=== PATIENT | female | born 1965 | race Caucasian/White ===

== ENCOUNTER 2016-08-29 14:24 | Day surgery (SDC) | payer OTHER ==
[~2016-08-29] VITALS: Ht 152.4 cm; Wt 72.6 kg
[~2016-08-29 14:24] MED LIST: AMLODIPINE BESYL5 MG PO; ASPIRIN EC325 MG PO; ASPIRIN325 MG PO; ATARAX10 MG PO; Actonel PO; CELLCEPT250 MG PO; CIPRO500 MG PO; CIPRO750 MG PO; CLEOCIN300 MG PO; CLOPIDOGREL75 MG PO; COLACE PO; COLACE100 MG PO; COLCRYS0.6 MG PO; COUMADIN,JANTO2.5 MG PO; CRESTOR20 MG PO; CYCLOSPORINE M100 MG PO; CYCLOSPORINE100 M2 PO; CYCLOSPORINE25 M2 PO; CYCLOSPORINE25 M3 PO; DILANTIN100 MG PO; ERGOCALCIF50000 UNIT PO; LAMICTAL100 MG PO; LAMICTAL150 M1 PO; LAMOTRIGINE100 MG PO; LASIX20 MG PO; LEVOTHYROXINE75 MCG PO; LOPRESSOR50 MG PO; LaMICtal PO; Lasix PO; Levothroid,Synthroid PO; METOPROLOL PO; METOPROLOL SUCC25 MG PO; METOPROLOL SUCC50 MG PO; METOPROLOL TART50 MG PO; MYCOPHENOLATE250 MG PO; NEURONTIN100 MG PO; NEXIUM40 MG PO; NITROSTAT,NITR0.4 M1 SL; NITROSTAT0.4 MG SL; NORVASC5 MG PO; Norvasc PO; OPANA ER5 MG PO; OXYCODONE HCL E10 MG PO; Oyst-Cal D, Oscal W/ PO; PHENYTOIN SODI100 M1 PO; PLAVIX75 MG PO; PREDNISONE1 MG PO; PROLIA60 MG/1 ML SC; PROTONIX40 MG PO; Percocet 5/325,Endoc PO; RANEXA500 MG PO; RECLAST5 MG/100 M IV; SANDIMMUNE25 MG PO; TOPROL XL50 MG PO; TRAMADOL HCL100 MG PO; TRAMADOL HCL200 MG PO; TYLENOL EXTRA500 MG PO; Toprol XL PO; VITAMIN D1000 INTUN PO; VITAMIN D250000 UNIT PO; Vytorin 10/80 PO; [UNRECOGNIZED DRUG - OTHER] PO; predniSONE PO
== END 2016-08-29 17:17 | disposition home or self-care (01) ==
LOC: PAIN 14:24 → SDC 15:00 → PAIN 15:00
PROC: 01513ZZ Destruction of Cervical Nerve, Percutaneous Approach (ICD-10-PCS; principal; 2016-08-29)
DX: M47.812 Spondylosis without myelopathy or radiculopathy, cervical region (principal); M54.12 Radiculopathy, cervical region; M47.816 Spondylosis without myelopathy or radiculopathy, lumbar region; M79.7 Fibromyalgia; Z79.02 Long term (current) use of antithrombotics/antiplatelets; I25.10 Atherosclerotic heart disease of native coronary artery without angina pectoris; Z86.73 Personal history of transient ischemic attack (TIA), and cerebral infarction without residual deficits; Q61.8 Other cystic kidney diseases; M54.5 Low back pain; I25.2 Old myocardial infarction; Z94.0 Kidney transplant status; Z96.642 Presence of left artificial hip joint; Z95.1 Presence of aortocoronary bypass graft; Z79.84 Long term (current) use of oral hypoglycemic drugs; Z88.8 Allergy status to other drugs, medicaments and biological substances
CPT/HCPCS: J1030; J2250; J3010; S0020

== ENCOUNTER 2016-09-01 08:37 | Observation (INO) | payer OTHER ==
[~2016-09-01] VITALS: Ht 152.4 cm; Wt 80.0 kg
[2016-09-01 10:04] LABS: BASOPHIL COUNT 0.1 K/uL (0-0.1); EOSINOPHIL (%) 9.8 % (0-5); EOSINOPHIL COUNT 0.8 K/uL (0-0.3); HEMATOCRIT 35.7 % (36.0-46.0); IMMATURE GRANULOCYTE (%) 0.4 % (0.0-0.7); INSTRUMENT ABS NEUTROPHIL CT 4.2 K/uL; LYMPHOCYTE COUNT 2.4 K/uL (1.0-2.8); MCH 31.6 PG (29.0-34.0); MCHC 30.5 G/DL (30.0-36.0); MCV 103.5 FL (83-99); MEAN PLAT.VOLUME 10.3 uM^3 (9.5-12.4); MONOCYTE (%) 8.4 % (3-12); MONOCYTE COUNT 0.7 K/uL (0-0.8); NEUTROPHIL (%) 51.5 % (45-76); NEUTROPHIL COUNT 4.2 K/uL (1.8-6.4); PLATELET COUNT 278 K/uL (156-360); RBC DIS.WIDTH-SD 48.7 % (39-53); RED BLOOD COUNT 3.45 M/uL (3.80-5.20); WHITE BLOOD COUNT 8.2 K/uL (4.1-10.2)
[2016-09-01 10:13] LABS: PTT 22.6 (25-32)
[2016-09-01 10:14] LABS: CHLORIDE 113 mEq/L (99-109); SODIUM 141 mEq/L (136-147)
[2016-09-01 10:16] LABS: GLUCOSE 85 mg/dL (70-99)
[2016-09-01 10:17] LABS: ANION GAP 8 MEQ/L (2-14)
[2016-09-01 10:20] LABS: GFR ESTIMATE (CALCULATED) > 59 mL/min/; UREA NITROGEN (BUN) 31 mg/dL (9-23)
[2016-09-01 10:23] LABS: TROP-I INTERPRETATION NEGATIVE; TROPONIN-I 0.01 ng/mL (0.0-0.30)
[2016-09-01 11:37] VITALS: BP 167/88
[2016-09-01] MEDS ORDERED: PLAVIX75 MG PO (12:13)
[2016-09-01] MEDS ORDERED: ERGOCALCIF50000 UNIT PO (12:14)
[2016-09-01] MEDS ORDERED: ROXICODONE5 MG PO (12:14)
[2016-09-01] MEDS ORDERED: FLUOROPLEX30 GM TP (16:10)
[2016-09-01 16:19] VITALS: BP 136/70
[2016-09-01 20:00] VITALS: BP 143/80
[2016-09-01 23:55] VITALS: BP 115/66
[2016-09-02 04:50] VITALS: BP 132/77
[2016-09-02 05:43] LABS: HEMATOCRIT 33.1 % (36.0-46.0); MCH 31.5 PG (29.0-34.0); MCHC 30.5 G/DL (30.0-36.0); MCV 103.1 FL (83-99); MEAN PLAT.VOLUME 10.5 uM^3 (9.5-12.4); PLATELET COUNT 272 K/uL (156-360); RBC DIS.WIDTH-CV 12.9 % (11.8-14.6); RBC DIS.WIDTH-SD 48.9 % (39-53); RED BLOOD COUNT 3.21 M/uL (3.80-5.20); WHITE BLOOD COUNT 7.8 K/uL (4.1-10.2)
[2016-09-02 06:01] LABS: ANION GAP 7 MEQ/L (2-14); CHLORIDE 112 MEQ/L (99-109); GFR ESTIMATE (CALCULATED) 56 mL/min/; GLUCOSE 89 mg/dL (70-99); HDL CHOLESTEROL 43 MG/DL (Desirable>=50); LDL CHOLESTEROL 83 mg/dL (Desirable<100); NON-HDL CHOLESTEROL 112 mg/dL (Desirable<160); POTASSIUM 4.9 MEQ/L (3.7-5.4); SAMPLE HEMOLYSIS CHECK 0; SAMPLE ICTERIC CHECK 0; SAMPLE LIPEMIA CHECK 0; SODIUM 140 MEQ/L (136-147); TOTAL CHOLESTEROL 155 mg/dL (Desirable<200); TRIGLYCERIDES 145 MG/DL (Normal: <150); UREA NITROGEN (BUN) 25 mg/dL (9-23)
[2016-09-02 06:50] LABS: Estimated Average Glucose 100 mg/dL (70-123); HEMOGLOBIN A1c (GLYCOHEMOGLOB) 5.1 % HGB (Below 5.7)
[2016-09-02 08:46] VITALS: BP 143/76
== END 2016-09-02 11:08 | disposition home or self-care (01) ==
LOC: EME → EDBD 08:37 → EME 08:37 → EDOF 10:46 → 5WEST 10:46 → EDOF 10:50 → 5WEST 11:28
PROVIDERS: Emergency Medicine; Hospitalist
DX: G45.9 Transient cerebral ischemic attack, unspecified (principal); G40.909 Epilepsy, unspecified, not intractable, without status epilepticus; I69.351 Hemiplegia and hemiparesis following cerebral infarction affecting right dominant side; I25.10 Atherosclerotic heart disease of native coronary artery without angina pectoris; I10 Essential (primary) hypertension; E78.5 Hyperlipidemia, unspecified; Z94.0 Kidney transplant status; K21.9 Gastro-esophageal reflux disease without esophagitis; E03.9 Hypothyroidism, unspecified; G89.29 Other chronic pain
CPT/HCPCS: 70450; 70551; 71010; 80048; 80061; 83036; 84484; 85025; 85027; 85610; 85730; 93005; 99281; 99285; G0378; G8978 GP CH; G8979 GP CH; G8980 GP CH; G8987 GO CH; G8988 GO CH; G8989 GO CH; J1644; J7502; J7512; J7515

== ENCOUNTER 2017-07-22 07:54 | Day surgery (SDC) | payer OTHER ==
[~2017-07-22] VITALS: Ht 152.4 cm; Wt 68.0 kg
[~2017-07-22 07:54] MED LIST changes: +COLACE CLEAR50 MG PO; +FLUOROPLEX30 GM TP; +ROXICODONE5 MG PO; +TRAMADOL HCL E200 M1 PO
[2017-07-22] MEDS ORDERED: ASPIR 8181 M1 PO (08:43)
== END 2017-07-22 10:34 | disposition home or self-care (01) ==
LOC: PAIN 07:54
DX: M50.13 Cervical disc disorder with radiculopathy, cervicothoracic region (principal); I25.10 Atherosclerotic heart disease of native coronary artery without angina pectoris; F41.9 Anxiety disorder, unspecified; I25.2 Old myocardial infarction; I10 Essential (primary) hypertension; K21.9 Gastro-esophageal reflux disease without esophagitis; Z79.891 Long term (current) use of opiate analgesic; Z79.02 Long term (current) use of antithrombotics/antiplatelets; Z86.73 Personal history of transient ischemic attack (TIA), and cerebral infarction without residual deficits
CPT/HCPCS: J1100

== ENCOUNTER 2017-08-07 09:28 | Day surgery (SDC) | payer OTHER ==
[~2017-08-07] VITALS: Ht 152.4 cm; Wt 68.0 kg
[~2017-08-07 09:28] MED LIST changes: +ASPIR 8181 M1 PO
== END 2017-08-07 10:55 | disposition home or self-care (01) ==
LOC: PAIN 09:28 → SDC 10:00 → PAIN 10:00
DX: M50.13 Cervical disc disorder with radiculopathy, cervicothoracic region (principal); M47.812 Spondylosis without myelopathy or radiculopathy, cervical region; I12.9 Hypertensive chronic kidney disease with stage 1 through stage 4 chronic kidney disease, or unspecified chronic kidney disease; N18.3 Chronic kidney disease, stage 3 (moderate); Z94.0 Kidney transplant status; D63.8 Anemia in other chronic diseases classified elsewhere; G89.29 Other chronic pain; K21.9 Gastro-esophageal reflux disease without esophagitis; E78.5 Hyperlipidemia, unspecified; E03.9 Hypothyroidism, unspecified; G40.909 Epilepsy, unspecified, not intractable, without status epilepticus; I25.2 Old myocardial infarction; Z79.82 Long term (current) use of aspirin; Z86.73 Personal history of transient ischemic attack (TIA), and cerebral infarction without residual deficits; Z79.891 Long term (current) use of opiate analgesic
CPT/HCPCS: J1100

== ENCOUNTER 2017-09-07 12:23 | Inpatient (IN) | payer OTHER ==
[~2017-09-07] VITALS: Ht 152.4 cm; Wt 69.4 kg
[2017-09-07 12:42] LABS: BASOPHIL (%) 0.8 % (0-1); BASOPHIL COUNT 0.1 K/uL (0-0.1); EOSINOPHIL (%) 6.5 % (0-5); EOSINOPHIL COUNT 0.4 K/uL (0-0.3); HEMATOCRIT 37.5 % (36.0-46.0); HEMOGLOBIN 11.8 G/DL (11.9-15.5); IMMATURE GRANULOCYTE (%) 0.5 % (0.0-0.7); LYMPHOCYTE (%) 33.5 % (15-42); LYMPHOCYTE COUNT 2.2 K/uL (1.0-2.8); MCH 29.9 PG (29.0-34.0); MCHC 31.5 G/DL (30.0-36.0); MCV 94.9 FL (83-99); MONOCYTE (%) 7.7 % (3-12); MONOCYTE COUNT 0.5 K/uL (0-0.8); NEUTROPHIL COUNT 3.4 K/uL (1.8-6.4); PLATELET COUNT 241 K/uL (156-360); RBC DIS.WIDTH-CV 14.6 % (11.8-14.6); RBC DIS.WIDTH-SD 51.4 % (39-53); RED BLOOD COUNT 3.95 M/uL (3.80-5.20); WHITE BLOOD COUNT 6.6 K/uL (4.1-10.2)
[2017-09-07 12:47] LABS: PTT 22.1 SEC (25-37)
[2017-09-07 12:48] LABS: AMYLASE 183 IU/L (1-118); CHLORIDE 109 mEq/L (99-109); POTASSIUM 5.8 mEq/L (3.7-5.4); SODIUM 136 mEq/L (136-147)
[2017-09-07 12:50] LABS: GLUCOSE 105 mg/dL (70-99)
[2017-09-07 12:53] LABS: SERUM ETHYL ALCOHOL < 10 mg/dL
[2017-09-07 12:54] LABS: CREATININE 1.3 mg/dL (0.6-1.3); GFR ESTIMATE (CALCULATED) 46 mL/min/
[2017-09-07 12:55] LABS: UREA NITROGEN (BUN) 31 mg/dL (9-23)
[2017-09-07 12:57] LABS: LIPASE 45 U/L (1.0-51.0)
[2017-09-07 13:00] LABS: TROP-I INTERPRETATION NEGATIVE; TROPONIN-I 0.01 ng/mL (0.0-0.30)
[2017-09-07 13:03] LABS: QUANTITATIVE HCG < 4.0 MIU/ML
[2017-09-07 14:29] LABS: APPEARANCE CLEAR ((CLEAR)); BILIRUBIN NEGATIVE; BLOOD SMALL; COLOR STRAW ((YELLOW)); GLUCOSE (STRIP) NEGATIVE; KETONES NEGATIVE; LEUKOCYTES NEGATIVE; NITRITE NEGATIVE; PROTEIN (STRIP) NEGATIVE; SPECIFIC GRAVITY 1.009 (1.000-1.030); UROBILINOGEN 0.2 MG/DL (0.2-1.0)
[2017-09-07 14:32] LABS: BACTERIA NONE SEEN /HPF; EPITHELIAL CELLS RARE /HPF; MUCUS TRACE /LPF; RED BLOOD CELLS 0-5 /HPF (0-5); UCUL ADDED? NO; WHITE BLOOD CELLS 0-5 /HPF (0-5)
[2017-09-07 14:39] LABS: AMPHETAMINE NEGATIVE (500 ng/mL); BARBITURATES PRESUMPTIVE POSITIVE (200 ng/mL); BENZODIAZEPINES NEGATIVE (150 ng/mL); BUPRENORPHINE NEGATIVE (10 ng/mL); COCAINE NEGATIVE (150 ng/mL); METHADONE NEGATIVE (200 ng/mL); METHAMPHETAMINE NEGATIVE (500 ng/mL); OPIATES (MORPHINE) NEGATIVE (100 ng/mL); OXYCODONE NEGATIVE (100 ng/mL); PHENCYCLIDINE NEGATIVE (25 ng/mL); PROPOXYPHENE NEGATIVE (300 ng/mL); THC CANNABINOIDS NEGATIVE (50 ng/mL); TRICYCLIC ANTIDEPRESSANTS NEGATIVE (300 ng/mL)
[2017-09-07 21:27] VITALS: BP 144/82
[2017-09-07 21:30] VITALS: BP 144/82
[2017-09-07 22:00] VITALS: BP 146/87
[2017-09-07 23:00] VITALS: BP 140/85
[2017-09-08] VITALS (14 sets, daily range): BP systolic 117–154; BP diastolic 69–92
[2017-09-08 06:07] LABS: INTER. NORMALIZED RATIO 1.2
[2017-09-08 06:10] LABS: PTT 27.4 SEC (25-37)
[2017-09-08 06:18] LABS: HEMATOCRIT 30.2 % (36.0-46.0); MCH 29.9 PG (29.0-34.0); MCHC 31.5 G/DL (30.0-36.0); PLATELET COUNT 213 K/uL (156-360); RBC DIS.WIDTH-CV 14.9 % (11.8-14.6); RBC DIS.WIDTH-SD 52.3 % (39-53); RED BLOOD COUNT 3.18 M/uL (3.80-5.20); WHITE BLOOD COUNT 6.2 K/uL (4.1-10.2)
[2017-09-08 06:20] LABS: HEMOGLOBIN 9.5 G/DL (11.9-15.5)
[2017-09-08 06:25] LABS: HDL CHOLESTEROL 32 MG/DL (Desirable>=50); LDL CHOLESTEROL 62 mg/dL (Desirable<100); NON-HDL CHOLESTEROL 94 mg/dL (Desirable<160); TOTAL CHOLESTEROL 126 mg/dL (Desirable<200); TRIGLYCERIDES 160 MG/DL (Normal: <150)
[2017-09-08 06:30] LABS: ALBUMIN 2.7 G/DL (3.2-4.8); ALKALINE PHOSPHATASE 75 IU/L (3-129); ALT (GPT) 8 IU/L (3-49); AST (GOT) 17 IU/L (2-34); CHLORIDE 114 MEQ/L (99-109); CREATININE 1.2 MG/DL (0.6-1.3); GFR ESTIMATE (CALCULATED) 50 mL/min/; GLUCOSE 84 mg/dL (70-99); POTASSIUM 4.8 MEQ/L (3.7-5.4); SODIUM 139 MEQ/L (136-147); TOTAL BILIRUBIN 0.3 MG/DL (0.0-1.0); TOTAL PROTEIN 4.8 G/DL (6.4-8.3); UREA NITROGEN (BUN) 23 mg/dL (9-23)
[2017-09-08 07:28] LABS: AMYLASE 92 IU/L (1-118); LIPASE 24 U/L (1.0-51.0)
[2017-09-08 10:20] LABS: HEMOGLOBIN A1c (GLYCOHEMOGLOB) 5.2 % (Below 5.7)
[2017-09-08 12:13] LABS: HEMATOCRIT 31.7 % (36.0-46.0); HEMOGLOBIN 9.7 G/DL (11.9-15.5); MCHC 30.6 G/DL (30.0-36.0); MCV 94.9 FL (83-99); PLATELET COUNT 224 K/uL (156-360); RBC DIS.WIDTH-CV 14.9 % (11.8-14.6); RED BLOOD COUNT 3.34 M/uL (3.80-5.20); WHITE BLOOD COUNT 5.3 K/uL (4.1-10.2)
[2017-09-09 03:52] VITALS: BP 107/62
[2017-09-09 06:22] LABS: BASOPHIL (%) 0.9 % (0-1); BASOPHIL COUNT 0.1 K/uL (0-0.1); EOSINOPHIL (%) 7.6 % (0-5); EOSINOPHIL COUNT 0.4 K/uL (0-0.3); HEMATOCRIT 30.3 % (36.0-46.0); HEMOGLOBIN 9.4 G/DL (11.9-15.5); IMMATURE GRANULOCYTE (%) 0.3 % (0.0-0.7); LYMPHOCYTE (%) 46.3 % (15-42); LYMPHOCYTE COUNT 2.7 K/uL (1.0-2.8); MCH 29.7 PG (29.0-34.0); MCV 95.9 FL (83-99); MONOCYTE (%) 9.8 % (3-12); MONOCYTE COUNT 0.6 K/uL (0-0.8); NEUTROPHIL (%) 35.1 % (45-76); PLATELET COUNT 206 K/uL (156-360); RBC DIS.WIDTH-CV 14.9 % (11.8-14.6); RBC DIS.WIDTH-SD 52.5 % (39-53); RED BLOOD COUNT 3.16 M/uL (3.80-5.20); WHITE BLOOD COUNT 5.8 K/uL (4.1-10.2)
[2017-09-09 06:56] LABS: CHLORIDE 111 MEQ/L (99-109); CREATININE 1.4 MG/DL (0.6-1.3); GFR ESTIMATE (CALCULATED) 42 mL/min/; GLUCOSE 83 mg/dL (70-99); POTASSIUM 5.2 MEQ/L (3.7-5.4); SODIUM 139 MEQ/L (136-147); UREA NITROGEN (BUN) 21 mg/dL (9-23)
[2017-09-09 07:22] VITALS: BP 140/78
[2017-09-09] MEDS ORDERED: TRAMADOL HCL50 MG PO (11:15)
[2017-09-09 11:46] VITALS: BP 151/86
== END 2017-09-09 15:25 | DRG 65 ==
LOC: EME → EDBD 12:23 → EME 12:23 → 5SOUTH 19:59 → EDOF 19:59 → 4WEST 19:59 → ENRESERV 20:00 → 4WEST 21:30 → ENRESERV 09-08 18:15 → 5SOUTH 09-08 19:50
PROVIDERS: Obstetrics & Gynecology; Specialist
DX: I63.9 Cerebral infarction, unspecified (principal); I67.89 Other cerebrovascular disease; G81.91 Hemiplegia, unspecified affecting right dominant side; I25.10 Atherosclerotic heart disease of native coronary artery without angina pectoris; I12.9 Hypertensive chronic kidney disease with stage 1 through stage 4 chronic kidney disease, or unspecified chronic kidney disease; E03.9 Hypothyroidism, unspecified; E78.5 Hyperlipidemia, unspecified; M19.90 Unspecified osteoarthritis, unspecified site; R29.701 NIHSS score 1; K21.9 Gastro-esophageal reflux disease without esophagitis; M81.0 Age-related osteoporosis without current pathological fracture; F32.9 Major depressive disorder, single episode, unspecified; R29.709 NIHSS score 9; Z96.651 Presence of right artificial knee joint; G40.909 Epilepsy, unspecified, not intractable, without status epilepticus; Z96.643 Presence of artificial hip joint, bilateral; Z68.30 Body mass index [BMI] 30.0-30.9, adult; I69.351 Hemiplegia and hemiparesis following cerebral infarction affecting right dominant side; Z95.5 Presence of coronary angioplasty implant and graft; Z79.82 Long term (current) use of aspirin; Z94.0 Kidney transplant status; I25.2 Old myocardial infarction; N18.3 Chronic kidney disease, stage 3 (moderate); Z79.899 Other long term (current) drug therapy; Z86.14 Personal history of Methicillin resistant Staphylococcus aureus infection
CPT/HCPCS: 70450; 70496; 70498; 70551; 80048; 80053; 80061; 81003; 82150; 82948; 83036; 83690; 84484; 84702; 84999; 85025; 85027; 85610; 85730; 86850; 86900; 86901; 87641; 92523 GN; 92610 GN; 93005; 93306; 97530 GP; 99281; 99285; G0480; J0610; J2997; J7030; J7050; J7502; J7512; J7515

== ENCOUNTER 2017-09-09 12:56 | Inpatient (IN) | payer OTHER ==
[~2017-09-09] VITALS: Ht 152.4 cm; Wt 69.3 kg
[~2017-09-09 12:56] MED LIST changes: +TRAMADOL HCL50 MG PO
[2017-09-09 16:09] VITALS: BP 162/80
[2017-09-10 00:35] VITALS: BP 147/73
[2017-09-10 06:14] VITALS: BP 122/64
[2017-09-10 08:09] LABS: HEMATOCRIT 35.4 % (36.0-46.0); HEMOGLOBIN 10.9 G/DL (11.9-15.5); MCH 29.5 PG (29.0-34.0); MCHC 30.8 G/DL (30.0-36.0); MCV 95.9 FL (83-99); RBC DIS.WIDTH-CV 14.9 % (11.8-14.6); RBC DIS.WIDTH-SD 52.5 % (39-53); RED BLOOD COUNT 3.69 M/uL (3.80-5.20); WHITE BLOOD COUNT 6.4 K/uL (4.1-10.2)
[2017-09-10 08:18] LABS: PLATELET COUNT 271 K/uL (156-360)
[2017-09-10 08:42] LABS: ALBUMIN 3.2 G/DL (3.2-4.8); ALKALINE PHOSPHATASE 87 IU/L (3-129); ALT (GPT) 9 IU/L (3-49); AST (GOT) 21 IU/L (2-34); CHLORIDE 108 MEQ/L (99-109); CREATININE 1.3 MG/DL (0.6-1.3); GFR ESTIMATE (CALCULATED) 46 mL/min/; GLUCOSE 102 mg/dL (70-99); POTASSIUM 4.9 MEQ/L (3.7-5.4); SODIUM 138 MEQ/L (136-147); UREA NITROGEN (BUN) 22 mg/dL (9-23)
[2017-09-10 08:52] LABS: TOTAL BILIRUBIN 0.4 MG/DL (0.0-1.0); TOTAL PROTEIN 5.9 G/DL (6.4-8.3)
[2017-09-10 15:09] VITALS: BP 161/83
[2017-09-11 06:30] VITALS: BP 148/82
[2017-09-11 15:38] VITALS: BP 157/88
[2017-09-12 05:18] VITALS: BP 167/74
[2017-09-12 08:36] VITALS: BP 146/79
[2017-09-12 15:34] VITALS: BP 124/58
[2017-09-13 06:20] VITALS: BP 141/73
[2017-09-13 07:38] LABS: HEMATOCRIT 33.1 % (36.0-46.0); HEMOGLOBIN 10.2 G/DL (11.9-15.5); MCHC 30.8 G/DL (30.0-36.0); PLATELET COUNT 247 K/uL (156-360); RBC DIS.WIDTH-CV 14.6 % (11.8-14.6); RBC DIS.WIDTH-SD 50.4 % (39-53); RED BLOOD COUNT 3.52 M/uL (3.80-5.20); WHITE BLOOD COUNT 5.7 K/uL (4.1-10.2)
[2017-09-13 08:02] LABS: ALBUMIN 3.1 G/DL (3.2-4.8); ALKALINE PHOSPHATASE 73 IU/L (3-129); ALT (GPT) 7 IU/L (3-49); AST (GOT) 20 IU/L (2-34); CHLORIDE 106 MEQ/L (99-109); CREATININE 1.5 MG/DL (0.6-1.3); GFR ESTIMATE (CALCULATED) 39 mL/min/; GLUCOSE 80 mg/dL (70-99); POTASSIUM 5.1 MEQ/L (3.7-5.4); SODIUM 138 MEQ/L (136-147); TOTAL BILIRUBIN 0.4 MG/DL (0.0-1.0); TOTAL PROTEIN 5.6 G/DL (6.4-8.3); UREA NITROGEN (BUN) 28 mg/dL (9-23)
[2017-09-13 15:03] VITALS: BP 138/79
[2017-09-14 05:54] VITALS: BP 135/61
[2017-09-14] MEDS ORDERED: TYLENOL REGULA325 MG PO (10:29)
[2017-09-14] MEDS ORDERED: THERAGRAN1 TABLET PO (10:29)
== END 2017-09-14 12:10 | DRG 57 ==
LOC: 3WEST 12:56
PROVIDERS: Physical Medicine & Rehabilitation Pain Medicine
PROC: F07M0ZZ Range of Motion and Joint Mobility Treatment of Musculoskeletal System - Whole Body (ICD-10-PCS; principal; 2017-09-09)
DX: I69.351 Hemiplegia and hemiparesis following cerebral infarction affecting right dominant side (principal); N17.9 Acute kidney failure, unspecified; Z94.0 Kidney transplant status; F33.9 Major depressive disorder, recurrent, unspecified; Q60.2 Renal agenesis, unspecified; E03.9 Hypothyroidism, unspecified; E78.5 Hyperlipidemia, unspecified; E83.51 Hypocalcemia; F41.9 Anxiety disorder, unspecified; G40.909 Epilepsy, unspecified, not intractable, without status epilepticus; G43.909 Migraine, unspecified, not intractable, without status migrainosus; I10 Essential (primary) hypertension; I25.10 Atherosclerotic heart disease of native coronary artery without angina pectoris; K21.9 Gastro-esophageal reflux disease without esophagitis; M19.90 Unspecified osteoarthritis, unspecified site; M81.0 Age-related osteoporosis without current pathological fracture; D64.9 Anemia, unspecified; R26.9 Unspecified abnormalities of gait and mobility; R47.1 Dysarthria and anarthria; Z96.643 Presence of artificial hip joint, bilateral; Z96.653 Presence of artificial knee joint, bilateral; I25.2 Old myocardial infarction; Z98.61 Coronary angioplasty status; Z90.49 Acquired absence of other specified parts of digestive tract; Z86.14 Personal history of Methicillin resistant Staphylococcus aureus infection
CPT/HCPCS: 80053; 85027; 97110 GO; 97530 GP; J7502; J7512; J7515